=== PATIENT | male | born 1945 | race Caucasian/White ===

== ENCOUNTER 2020-09-24 12:38 | Emergency (ER) | payer MEDICARE ==
[~2020-09-24] VITALS: Ht 182.9 cm; Wt 117.9 kg
[2020-09-24 14:41] LABS: HEMOGLOBIN 15.7 gm/dl (14.0-17.5); RED BLOOD COUNT 5.6 M/UL (4.20-5.50)
[2020-09-24 15:09] LABS: BUN/CREATININE RATIO 19 (0-10)
[2020-09-24 15:24] LABS: WHITE BLOOD COUNT 3.5 K/UL (4.5-11.0)
[2020-09-24] MEDS ORDERED: DECADRON6 MG PO (16:01)
[2020-09-24] MEDS ORDERED: ZITHROMAX250 MG PO (16:01)
[2020-09-24] MEDS ORDERED: ASPIRIN EC81 MG PO (16:01)
== END 2020-09-24 18:45 | disposition home or self-care (01) ==
LOC: ER1 12:38
DX: U07.1 COVID-19 (principal); J12.82 Pneumonia due to coronavirus disease 2019; I10 Essential (primary) hypertension; Z79.899 Other long term (current) drug therapy
CPT/HCPCS: 36415; 71045; 80053; 85025; 93005; 96374; 99284; J0696; M0239